=== PATIENT | female | born 1990 | race Caucasian/White ===

== ENCOUNTER 2025-01-22 15:32 | Outpatient (CLI) | payer OTHER, SELFPAY ==
--- NOTE | ~2025-01-22 | MR_ITS ---
EXAM/PROCEDURE: MR sacroiliac jts wo con HISTORY: low back pain COMPARISON: None available. TECHNIQUE: Standard technique for multiplanar noncontrast enhanced MRI of the sacroiliac joints. FINDINGS: Both the sacroiliac joints appear within normal limits. No significant osteoarthritic changes or erosive changes. Joint spaces appear adequately preserved. The bones and soft tissues about the SI joints appear within normal limits. IMPRESSION: Both SI joints within normal limits. Reviewed, dictated and finalized at location A. [facility]
== END 2025-01-22 15:33 | disposition home or self-care (01) ==
LOC: MICIMG 15:34
DX: M54.50 Low back pain, unspecified (principal)
CPT/HCPCS: 72195